=== PATIENT | female | born 1995 | race Two or more races ===

== ENCOUNTER 2019-04-19 18:25 | Emergency (ER) | payer BC, MEDICAID ==
--- NOTE | 2019-04-19 19:59 | ER Document Report ---
ED Medical Screen (RME) - General Chief Complaint: Psych Problem Stated Complaint: PSYCH EVAL Time Seen by Provider: 04/19/19 19:44 Primary Care Provider: SCOTT THURSTON [Primary Care Provider] - Follow up as needed Mode of Arrival: Medic Information source: Patient Notes: 23-year-old female patient presents via EMS with request for entire body checkup. Patient reports that she wants to be checked from the top of her head to her vagina for any illness. Patient is not making any sense, she is talking about her childhood, about abuses, about the fact that she is the [employer] and about the fact that all of us "normal people should be the beheaders". She denies any suicidal or homicidal ideation, denies any psychiatric illnesses and denies the usage of any medications. I have greeted and performed a rapid initial assessment of this patient. A comprehensive ED assessment and evaluation of the patient, analysis of test results and completion of the medical decision making process will be conducted by additional ED providers. I have specifically instructed the patient or family members with the patient to immediately return to any nursing staff should anything change in the patient's condition or with their chief complaint. TRAVEL OUTSIDE OF THE U.S. IN LAST 30 DAYS: No - Related Data Allergies/Adverse Reactions: No Known Allergies Allergy (Unverified 04/19/19 19:44) Past Medical History - Social History Frequency of alcohol use: None Drug Abuse: None Physical Exam - Vital signs Vitals: Temp Pulse Resp BP Pulse Ox 98.1 F 72 20 141/47 H 99 04/19/19 18:48 04/19/19 18:48 04/19/19 18:48 04/19/19 18:48 04/19/19 18:48 Course - Vital Signs Vital signs: Temp Pulse Resp BP Pulse Ox 98.1 F 72 20 141/47 H 99 04/19/19 18:48 04/19/19 18:48 04/19/19 18:48 04/19/19 18:48 04/19/19 18:48 Doctor's Discharge - Discharge Referrals: SCOTT THURSTON [Primary Care Provider] - Follow up as needed
[2019-04-19 20:46] LABS: APPEARANCE,URINE SLIGHTLY-CLOUDY; BILIRUBIN,URINE NEGATIVE (NEGATIVE); COLOR,URINE YELLOW; GLUCOSE, URINE NEGATIVE (NEGATIVE); KETONES,URINE NEGATIVE (NEGATIVE); LEUKOCYTE ESTERASE,URINE NEGATIVE (NEGATIVE); NITRITE,URINE NEGATIVE (NEGATIVE); PROTEIN,URINE NEGATIVE (NEGATIVE); URINE SPECIFIC GRAVITY 1.028
--- NOTE | 2019-04-19 20:52 | ER Document Report ---
ED General - General Chief Complaint: Psych Problem Stated Complaint: PSYCH EVAL Time Seen by Provider: 04/19/19 19:44 Primary Care Provider: SCOTT THURSTON [Primary Care Provider] - Follow up as needed Mode of Arrival: Medic TRAVEL OUTSIDE OF THE U.S. IN LAST 30 DAYS: No - HPI Notes: Patient is a 23-year-old female, poor historian who presents for unknown specific complaint. Patient states that she has been on many medicines including some for schizophrenia. Patient states that she is coming from [facility] and was told to come here by her grandmother. It is very difficult to keep the patient focused on a specific topic and she goes on to say that there is a man in [place] somewhere that calls her "sperm" and does not want to go outside. Patient states that she is trying to find a way for her mother and her grandmother to "go below the world" as she "does not belong in the [facility]." She otherwise has been able to eat and drink without difficulty. She is urinating normally and having normal bowel movements. Patient states that she is not currently taking any medicines. Denies any headache, fever, head injury, neck pain, URI, sore throat, chest pain, palpitations, syncope, cough, shortness of breath, wheeze, dyspnea, abdominal pain, nausea/vomiting/diarrhea, urinary retention, dysuria, hematuria, or rash. - Related Data Allergies/Adverse Reactions: No Known Allergies Allergy (Unverified 04/19/19 19:44) Past Medical History - General Information source: Patient Cannot obtain history due to: Other - ?MH disorder - Social History Smoking Status: Unknown if Ever Smoked Frequency of alcohol use: None Drug Abuse: None Family History: Reviewed & Not Pertinent Patient has suicidal ideation: No Patient has homicidal ideation: No Review of Systems - Review of Systems -: Yes All other systems reviewed and negative Physical Exam - Vital signs Vitals: Temp Pulse Resp BP Pulse Ox 98.1 F 72 20 141/47 H 99 04/19/19 18:48 04/19/19 18:48 04/19/19 18:48 04/19/19 18:48 04/19/19 18:48 - Notes Notes: PHYSICAL EXAMINATION: GENERAL: Well-appearing, well-nourished and in no acute distress. A&Ox2. HEAD: Atraumatic, normocephalic. EYES: Pupils equal round and reactive to light, extraocular movements intact, sclera anicteric, conjunctiva are normal. ENT: Nares patent and without discharge. oropharynx clear without exudates. No tonsilar hypertrophy or erythema. Moist mucous membranes. No sinus tenderness. NECK: Normal range of motion, supple without lymphadenopathy LUNGS: Breath sounds clear to auscultation bilaterally and equal. No wheezes rales or rhonchi. HEART: Regular rate and rhythm without murmurs, rubs, gallops. ABDOMEN: Soft, nontender, nondistended abdomen. No guarding, no rebound. No masses appreciated. Normal bowel sounds present. No CVA tenderness bilaterally. Musculoskeletal: FROM to passive/active. Strength 5+/5. Extremities: No cyanosis, clubbing, or edema b/l. Peripheral pulses 2+. Capillary refill less than 3 seconds. NEUROLOGICAL: Cranial nerves grossly intact. Normal speech, normal gait. Normal sensory, motor exams PSYCH: tangiential speech, racing thoughts, paranoid behavior, slow speech/not slurred. SKIN: Warm, Dry, normal turgor, no rashes or lesions noted. Course - Re-evaluation Re-evalutation: 04/20/19 00:57 Patient is an afebrile, well-hydrated, 23-year-old female who presents with possible schizophrenia and being manic. Vitals are acceptable. PE is otherwise unremarkable. Patient is nontoxic-appearing and is tolerating p.o. without difficulty. Labs and imaging unremarkable. No further work-up warranted at this time. Patient is resting comfortably. Patient is currently medically cleared for evaluation by our mental health team in the morning. - Vital Signs Vital signs: Temp Pulse Resp BP Pulse Ox 98.1 F 72 20 141/47 H 99 04/19/19 18:48 04/19/19 18:48 04/19/19 18:48 04/19/19 18:48 04/19/19 18:48 - Laboratory Result Diagrams: 04/19/19 21:56 04/19/19 21:56 Laboratory results interpreted by me: 04/19/19 04/19/19 20:20 21:56 Urine Urobilinogen 4.0 H Salicylates < 1.0 L Acetaminophen < 10 L Discharge - Discharge Clinical Impression: Manic behavior Condition: Stable Disposition: PSYCH HOSP/UNIT Referrals: SCOTT THURSTON [Primary Care Provider] - Follow up as needed
[2019-04-19 21:02] LABS: URINE AMPHETAMINES SCREEN NEGATIVE; URINE BARBITURATES SCREEN NEGATIVE; URINE BENZODIAZEPINES SCREEN NEGATIVE; URINE COCAINE SCREEN NEGATIVE; URINE MARIJUANA (THC) SCREEN NEGATIVE; URINE METHADONE SCREEN NEGATIVE; URINE PHENCYCLIDINE SCREEN NEGATIVE
--- NOTE | 2019-04-19 21:36 | RADIOLOGY REPORT (SQ) ---
EXAM DESCRIPTION: RadLex: CT HEAD WITHOUT IV CONTRAST CLINICAL HISTORY: 23 years Female; AMS; TECHNIQUE: Noncontrast CT head. All CT scans at this facility use dose modulation, iterative reconstruction, and/or weight based dosing when appropriate to reduce radiation dose to as low as reasonably achievable. COMPARISON: None. FINDINGS: Gamble matter, white matter, ventricles, and cisterns are within normal limits. No acute hemorrhage or mass effect. Mild focal chronic mucosal thickening in the floor the right maxillary sinus. No sinus air-fluid levels. No mastoid effusion. Visualized portions of the calvarium are within normal limits. IMPRESSION: 1. Normal noncontrast CT of the brain
[2019-04-19 22:09] LABS: ABSOLUTE BASOPHILS # (AUTO) 0.1 10^3/uL (0.0-0.2); ABSOLUTE EOSINOPHILS # (AUTO) 0.1 10^3/uL (0.0-0.6); ABSOLUTE LYMPHOCYTES (AUTO) 2.5 10^3/uL (0.5-4.7); ABSOLUTE MONOCYTES (AUTO) 0.6 10^3/uL (0.1-1.4); ABSOLUTE NEUT (AUTO) 4.2 10^3/uL (1.7-8.2); BASOPHILS % (AUTO) 0.7 % (0-2); EOSINOPHILS % (AUTO) 1.1 % (0-6); HEMATOCRIT 37.1 % (36.0-47.0); HEMOGLOBIN 12.7 g/dL (12.0-15.5); LYMPHOCYTES % (AUTO) 33.2 % (13-45); MEAN CORPUSCULAR HEMOGLOBIN 29.5 pg (27.0-33.4); MEAN CORPUSCULAR HGB CONC 34.2 g/dL (32.0-36.0); MEAN CORPUSCULAR VOLUME 87 fl (80-97); MONOCYTES % (AUTO) 8.5 % (3-13); PLATELET COUNT 284 10^3/uL (150-450); RED BLOOD COUNT 4.29 10^6/uL (3.72-5.28); RED CELL DISTRIBUTION WIDTH 13.6 % (11.5-14.0); SEGMENTED NEUTROPHILS % (AUTO) 56.5 % (42-78); TOTAL CELLS COUNTED % (AUTO) 100 %; WHITE BLOOD COUNT 7.5 10^3/uL (4.0-10.5)
[2019-04-19] MEDS ORDERED: FLUCONAZOLE 100 MG TABLET PO ONE (22:29)
[2019-04-19 22:37] LABS: ALBUMIN 3.9 g/dL (3.5-5.0); ALKALINE PHOSPHATASE 72 U/L (38-126); ANION GAP 8 (5-19); ASPARTATE AMINO TRANSFERASE 22 U/L (14-36); BILIRUBIN,DIRECT 0.2 mg/dL (0.0-0.4); BILIRUBIN,TOTAL 0.4 mg/dL (0.2-1.3); BLOOD UREA NITROGEN 15 mg/dL (7-20); CALCIUM 9.4 mg/dL (8.4-10.2); CARBON DIOXIDE 27 mmol/L (22-30); CHLORIDE 106 mmol/L (98-107); GLUCOSE 90 mg/dL (75-110); POTASSIUM 4.4 mmol/L (3.6-5.0); TOTAL PROTEIN 6.8 g/dL (6.3-8.2)
[2019-04-19 22:39] LABS: ACETAMINOPHEN < 10 ug/mL (10-30); ALCOHOL < 10 mg/dL (NONE DETECTED); SALICYLATE < 1.0 mg/dL (2.0-20.0)
--- NOTE | 2019-04-20 07:15 | EKG REPORT ---
SEVERITY:- NORMAL ECG - SINUS RHYTHM : Confirmed by: Kumar Tillman MD 20-Apr-2019 07:14:44
--- NOTE | 2019-04-20 11:55 | ER Document Report ---
Doctor's Note Notes: 04/20/19 11:46 S: 23-year-old female in the emergency department for possible acute psychosis since last night. She was seen overnight by an ER provider and had an tangential thought process. Apparently she just recently moved here from [place] and is living with her grandmother. Her grandmother sent her here for further evaluations. Patient cannot tell me any medicines that she is on. She is very tangential in her thought process but tells me certain things repetitively such as she needs to have her "brain, mouth, vagina, butthole, and feet" checked before she "goes on the plane". She states that she needs to "get on the plane" that she can fly around the world with [employer], a company that makes antibiotics and keeps your bones together, to find her right full family". She repeats this sentiment several times. She does not know where her family is across the world, but states that "[employer] will help me find them." She denies SI or HI. She hesitates when asked if she is hearing voices but then states no. When asked if she is seeing things that are not there she tells me that she is seeing people come into the room and touch her. When I asked her to clarify what she meant, she states that she means she sees me examining her. She is a very poor historian. O: Constitutional: Alert, in no acute distress, brushing her hair HENT: normocephalic, atraumatic, normal pharyngeal exam Cardiac: RRR, no murmurs, rubs, or gallops Pulm: CTA bilaterally, no wheezes, rhonchi or rales Abdomen: soft, non tender, non distended. Skin: Normal turgor, dry, no rash -- no rash or evidence for injury to the feet. mild fungal toenail infection to the bilateral great toenails. Psych: Very bizarre affect. Tangential in speech -- fixated on getting on a plane and having people check her brain, mouth, feet, vagina and rectum. Hints at auditory and visual hallucinations and appears to be responding to internal stimuli. denies SI, HI. Neuro: CN 2-12 intact, no pronator drift, normal finger to nose bilaterally, no leg drift. A/P: 23-year-old female with what appears to be an acute psychotic event. She is slightly manic and pressured in her speech. She is certainly tangential. Fixated on getting on a plane and having a company find her "rightful family". She cannot tell me if she is on any medications. She is currently IVCed. Pending behavioral health team management. 04/20/19 16:43 Discussed patient with Rosa from behavioral health as well as Dr. Ramirez, our clinical psychologist. Dr. Ramirez staff the patient herself. She believes that this is likely not really a psychosis but more of a developmental delay issue. Behavioral health team has tried to contact grandmother as well as mom about further outpatient care. Grandmother lives in [place] and cannot help and mom states that she does not have anything to do with her daughter. They have not been able to get in touch with dad. Patient is not suicidal or homicidal. She has been resting fine here in the emergency department she has not been out of her room or disruptive of any kind. Dr. Ramirez feels ap propriate that patient can be discharged home. She is making a phone call to [facility] [place] [facility] to get her plugged in for further services. I discussed this with my ER attending, Dr. Garcia, and she agrees with the plan for discharge.
[2019-04-20 17:45] VITALS: BP 128/86
--- NOTE | 2019-04-20 18:03 | PSYCHOLOGICAL NOTE ---
Psych Note - Psych Note Date seen by psych provider: 04/20/19 Time seen by psych provider: 08:25 Psych Note: Patient is a 23-year-old female who presents to ED via EMS for concerns of possible psychosis. The overnight attending physician attempted to complete a 24 hour petition for evaluation; however the 24 hour petition for evaluation did not meet legal threshold and was not notarized. Patient was resting comfortably when clinician entered the room. Patient is o riented to name, place, and circumstance. Patient requests a detailed examination of her mouth, "butt hole," feet and vagina. Patient spoke of coming to [place] "for free things." Patient perseverated on obtaining her certificate and social security card. Clinician notes pressured speech and tangential thought processes. Clinician did not observe psychomotor agitation and/or racing thoughts that would suggest a manic episode. Patient generally needed to be told information a couple of times in order for her to process the information. Patient needed frequent redirection to stay on topic. Clinician spoke to patient's mother ([phone]) and grandmother (rachel [phone]) throughout the day. Patient was placed on a bus by her grandmother with the intent of having patient's mother care for her. It is unknown how patient became involved with EMS. Patient's mother arrived at ED after being notified by clinician that patient is here. Mother refuses to be engaged in patient's care because mother states patient "acted out" by refusing to go with mother when mother came to pick her up. Mother states she will visit "where yall send her." Patient's grandmother states patient lived with her father until she was 18, and then father sent her to live with her grandmother in [place]. Grandmother states patient cannot come back to live with her because she is "disabled" and living in a senior citizen complex in [place]. Grandmother does not know patient's biological father's contact information. Impression/Plan: Patient is cleared from acute psychiatric services. Patient denies suicidal and homicidal ideations. There is no observed behavior that suggests patient is responding to internal stimuli. Patient was able to express needs and wants in a logical manner. Patient required redirection to remain on topic and needed information to be repeated, which is suggestive of possible cognitive processing delays. Patient's mother and grandmother were poor hist orians, so obtaining background information is challenging. Patient spoke of a desire to find her family, which is suggestive of her not viewing her family her in [place] (mother and grandmother) as family. Patient's mother and other grandmother visited patient in hospital and patient declined to go with them because she states she does not remember them. Behavioral health team collaborated with the [facility] to secure housing, and a cab voucher was provided by the ED to assist with transportation. An APS report was filed. Dr. Ramirez was consulted on the care and management of this patient; attending physician is in agreement with recommendations and disposition.
== END 2019-04-20 18:17 | disposition home or self-care (01) ==
LOC: ER 18:25
DX: F29 Unspecified psychosis not due to a substance or known physiological condition (principal); F30.9 Manic episode, unspecified
CPT/HCPCS: 36415; 70450; 80053; 80307; 81001; 85025; 93005; 93010

== ENCOUNTER 2019-04-28 21:51 | Emergency (ER) | payer SELFPAY ==
[2019-04-28 22:10] VITALS: BP 138/63
[2019-04-28] MEDS ORDERED: GUAIFENESIN 600 MG TABLET.SA PO ONE (22:58)
[2019-04-28] MEDS ORDERED: IBUPROFEN 600 MG TABLET PO ONE (22:58)
--- NOTE | 2019-04-28 23:01 | ER Document Report ---
HPI - HPI Time Seen by Provider: 04/28/19 22:53 Context: Patient is a 23-year-old female who presents to the emergency department with a chief complaint of nasal congestion, cough, and chest congestion for the past week. Patient states that she feels like she has "ichy sticky's" in the back of her throat in her chest. - CONSTITUTIONAL Constitutional: REPORTS: Chills. DENIES: Fever - EENT EENT: REPORTS: Nasal Drainage-Clear, Congestion. DENIES: Sore Throat, Ear Pain, Nasal Drainage-Purulent, Eye problems - NEURO Neurology: DENIES: Headache, Weakness - CARDIOVASCULAR Cardiovascular: DENIES: Chest pain - RESPIRATORY Respiratory: REPORTS: Coughing. DENIES: Trouble Breathing - GASTROINTESTINAL Gastrointestinal: DENIES: Abdominal Pain, Nausea, Patient vomiting - MUSCULOSKELETAL Musculoskeletal: DENIES: Extremity pain - DERM Skin Color: Normal Skin Problems: None Past Medical History - General Information source: Patient - Social History Smoking Status: Unknown if Ever Smoked Family History: Reviewed & Not Pertinent Vertical Provider Document - CONSTITUTIONAL Agree With Documented VS: Yes Exam Limitations: No Limitations General Appearance: No Apparent Distress - INFECTION CONTROL TRAVEL OUTSIDE OF THE U.S. IN LAST 30 DAYS: No - HEENT HEENT: Atraumatic, Normocephalic, PERRLA. negative: Conjuctival Injection, Pharyngeal Exudate, Pharyngeal Tenderness, Pharyngeal Erythema, Tympanic Membrane Red, Tympanic Membrane Bulging Notes: clear rhinorrhea noted - RESPIRATORY Respiratory: Breath Sounds Normal, No Respiratory Distress - CARDIOVASCULAR Cardiovascular: Regular Rate, Regular Rhythm, No Murmur Pulses: Normal: Radial - GI/ABDOMEN Gastrointestinal: Abdomen Soft, Abdomen Non-Tender - MUSCULOSKELETAL/EXTREMETIES Musculoskeletal/Extremeties: FROM - DERM Integumentary: Warm, Dry, No Rash Course - Re-evaluation Re-evalutation: 04/29/19 01:07 Patient was called and did not answer. Chest x-ray is normal. At this time, I have a very low suspicion for any life-threatening etiology. Breath sounds were clear upon my initial assessment. I wrote discharge paperwork for the patient, but she was not in the lobby. She will be placed on Mucinex, ibuprofen, and Tylenol to help with her symptoms. Discharge paperwork was given to JOHANNY Ibrahim. If patient returns, Alexandria will give the patient her paperwork. - Vital Signs Vital signs: Temp Pulse Resp BP Pulse Ox 98.2 F 65 20 138/63 H 100 04/28/19 22:06 04/28/19 22:06 04/28/19 22:06 04/28/19 22:06 04/28/19 22:06 Discharge - Discharge Clinical Impression: Chest congestion, Cough Condition: Stable Disposition: ELOPED Additional Instructions: You were seen today in the emergency department for chest congestion, nose congestion, and generally not feeling well. Your chest x-ray is normal. Please take Mucinex as prescribed. Take ibuprofen 600 mg and acetaminophen 1000 mg every 6 hours for body aches. Follow-up with your primary care provider in regards to this visit. Prescriptions: Acetaminophen [Acetaminophen Extra Strength] 1,000 mg PO Q6HP PRN #90 tablet PRN Reason: Pain Scale Of 1 Ibuprofen [Ibu] 600 mg PO Q6HP PRN #30 tablet PRN Reason: Guaifenesin [Mucinex] 1,200 mg PO BID #[id number] Referrals: SCOTT THURSTON [Primary Care Provider] - Follow up as needed
--- NOTE | 2019-04-28 23:47 | RADIOLOGY REPORT (SQ) ---
EXAM DESCRIPTION: XR CHEST 2 VIEWS COMPLETED DATE/TME: 04/28/2019 22:58 CLINICAL HISTORY: 23 years, Female, cough; congestion COMPARISON: None. NUMBER OF VIEWS: 2 TECHNIQUE: 2 view chest LIMITATIONS: None. FINDINGS: Heart size normal. Lungs clear. No pneumothorax IMPRESSION: Negative chest copyright 2011 [employer]- All Rights Reserved
== END 2019-04-29 01:10 | disposition left against medical advice (07) ==
LOC: ER 21:51
DX: R09.89 Other specified symptoms and signs involving the circulatory and respiratory systems (principal); R05 Cough; R09.81 Nasal congestion; R68.83 Chills (without fever); J34.89 Other specified disorders of nose and nasal sinuses; Z53.20 Procedure and treatment not carried out because of patient's decision for unspecified reasons
CPT/HCPCS: 71046

== ENCOUNTER 2019-04-29 02:05 | Emergency (ER) | payer SELFPAY ==
[2019-04-29 02:11] VITALS: BP 123/60
[2019-04-29 02:57] LABS: A TYPE INFLUENZA AG NEGATIVE (NEGATIVE); B INFLUENZA AG NEGATIVE (NEGATIVE)
== END 2019-04-29 06:17 | disposition left against medical advice (07) ==
LOC: ER 02:05
DX: Z53.21 Procedure and treatment not carried out due to patient leaving prior to being seen by health care provider (principal)
CPT/HCPCS: 87804

== ENCOUNTER 2019-05-11 18:55 | Emergency (ER) | payer SELFPAY ==
--- NOTE | 2019-05-11 19:17 | ER Document Report ---
ED Medical Screen (RME) - General Chief Complaint: Psych Problem Stated Complaint: DELUSIONAL Time Seen by Provider: 05/11/19 19:16 Primary Care Provider: SCOTT THURSTON [Primary Care Provider] - Follow up as needed Notes: 23-year-old female presents for psych evaluation. Patient has tangential thought. Patient denies any SI or HI. Patient denies any visual or auditory hallucinations. Nontoxic, well-appearing. I have greeted and performed a rapid initial assessment of this patient. A comprehensive ED assessment and evaluation of the patient, analysis of test results and completion of the medical decision making process with be conducted by additional ED providers. TRAVEL OUTSIDE OF THE U.S. IN LAST 30 DAYS: No - Related Data Allergies/Adverse Reactions: No Known Allergies Allergy (Verified 04/20/19 07:35) Physical Exam - Vital signs Vitals: Temp Pulse Resp BP Pulse Ox 98.2 F 80 16 130/76 H 99 05/11/19 19:01 05/11/19 19:01 05/11/19 19:01 05/11/19 19:01 05/11/19 19:01 Course - Vital Signs Vital signs: Temp Pulse Resp BP Pulse Ox 98.2 F 80 16 130/76 H 99 05/11/19 19:01 05/11/19 19:01 05/11/19 19:01 05/11/19 19:01 05/11/19 19:01 Doctor's Discharge - Discharge Referrals: SCOTT THURSTON [Primary Care Provider] - Follow up as needed
[2019-05-11 20:11] LABS: ABSOLUTE EOSINOPHILS # (AUTO) 0.2 10^3/uL (0.0-0.6); ABSOLUTE LYMPHOCYTES (AUTO) 2.5 10^3/uL (0.5-4.7); ABSOLUTE MONOCYTES (AUTO) 0.6 10^3/uL (0.1-1.4); ABSOLUTE NEUT (AUTO) 4.4 10^3/uL (1.7-8.2); BASOPHILS % (AUTO) 0.5 % (0-2); EOSINOPHILS % (AUTO) 2.3 % (0-6); HEMATOCRIT 35.4 % (36.0-47.0); HEMOGLOBIN 12.1 g/dL (12.0-15.5); LYMPHOCYTES % (AUTO) 32.1 % (13-45); MEAN CORPUSCULAR HEMOGLOBIN 29.9 pg (27.0-33.4); MEAN CORPUSCULAR HGB CONC 34.2 g/dL (32.0-36.0); MEAN CORPUSCULAR VOLUME 87 fl (80-97); MONOCYTES % (AUTO) 7.9 % (3-13); PLATELET COUNT 322 10^3/uL (150-450); RED BLOOD COUNT 4.06 10^6/uL (3.72-5.28); RED CELL DISTRIBUTION WIDTH 13.8 % (11.5-14.0); SEGMENTED NEUTROPHILS % (AUTO) 57.2 % (42-78); TOTAL CELLS COUNTED % (AUTO) 100 %; WHITE BLOOD COUNT 7.7 10^3/uL (4.0-10.5)
[2019-05-11 20:13] LABS: APPEARANCE,URINE SLIGHTLY-CLOUDY; BILIRUBIN,URINE NEGATIVE (NEGATIVE); COLOR,URINE YELLOW; GLUCOSE, URINE NEGATIVE (NEGATIVE); KETONES,URINE NEGATIVE (NEGATIVE); LEUKOCYTE ESTERASE,URINE TRACE (NEGATIVE); NITRITE,URINE NEGATIVE (NEGATIVE); PROTEIN,URINE NEGATIVE (NEGATIVE); URINE SPECIFIC GRAVITY 1.027
[2019-05-11 20:24] LABS: URINE AMPHETAMINES SCREEN NEGATIVE; URINE BARBITURATES SCREEN NEGATIVE; URINE BENZODIAZEPINES SCREEN NEGATIVE; URINE COCAINE SCREEN NEGATIVE; URINE MARIJUANA (THC) SCREEN NEGATIVE; URINE METHADONE SCREEN NEGATIVE; URINE PHENCYCLIDINE SCREEN NEGATIVE
[2019-05-11 20:26] LABS: ACETAMINOPHEN < 10 ug/mL (10-30); ALBUMIN 4.1 g/dL (3.5-5.0); ALCOHOL < 10 mg/dL (NONE DETECTED); ALKALINE PHOSPHATASE 85 U/L (38-126); ANION GAP 9 (5-19); ASPARTATE AMINO TRANSFERASE 37 U/L (14-36); BILIRUBIN,DIRECT 0.2 mg/dL (0.0-0.4); BILIRUBIN,TOTAL 0.5 mg/dL (0.2-1.3); BLOOD UREA NITROGEN 17 mg/dL (7-20); CALCIUM 9.2 mg/dL (8.4-10.2); CARBON DIOXIDE 26 mmol/L (22-30); CHLORIDE 103 mmol/L (98-107); GLUCOSE 85 mg/dL (75-110); POTASSIUM 4.1 mmol/L (3.6-5.0); SALICYLATE < 1.0 mg/dL (2.0-20.0)
--- NOTE | 2019-05-11 23:13 | ER Document Report ---
ED General - General Chief Complaint: Psych Problem Stated Complaint: DELUSIONAL Time Seen by Provider: 05/11/19 19:16 Primary Care Provider: SCOTT THURSTON [Primary Care Provider] - Follow up as needed Mode of Arrival: Ambulatory Information source: Patient Notes: 23-year-old female with history of schizophrenia presents emergency department with no complaints. According to Georgi from [facility] the patient recently moved to the area from [place]. She was supposed to live with her mother but her mother reports patients acts out and does not want her to live with her. Patient has been living in the homeless senior living for the past month. Apparently she went to [employer] and people became concerned because she was acting a little bizarre. Patient denies suicidal or homicidal ideations. Patient is very calm, easy to talk with. She talks about the need to get to the other side of the world. Patient does not answer questions directly. When asked why she came to the emergency department she will start talking about her grandfather who she does not know his name who she has to find who is living on the other side the world. Patient has no complaints at this time. Discussed patient with from [facility]. Discharge director of social services consult ordered. TRAVEL OUTSIDE OF THE U.S. IN LAST 30 DAYS: No - HPI Quality of pain: No pain Associated symptoms: None Exacerbated by: Denies Relieved by: Denies Similar symptoms previously: Yes Recently seen / treated by doctor: Yes - Related Data Allergies/Adverse Reactions: No Known Allergies Allergy (Verified 04/20/19 07:35) Past Medical History - General Information source: Patient - Social History Smoking Status: Never Smoker Chew tobacco use (# tins/day): No Frequency of alcohol use: None Drug Abuse: None Lives with: Homeless Family History: Reviewed & Not Pertinent Patient has suicidal ideation: No Patient has homicidal ideation: No Psychiatric Medical History: Reports: Hx Schizophrenia, Other - IDD Surgical Hx: Negative Review of Systems - Review of Systems Notes: Review HPI for review of systems., All other systems negative Physical Exam - Vital signs Vitals: Temp Pulse Resp BP Pulse Ox 98.2 F 80 16 130/76 H 99 05/11/19 19:01 05/11/19 19:01 05/11/19 19:01 05/11/19 19:01 05/11/19 19:01 - Notes Notes: PHYSICAL EXAMINATION: GENERAL: Well-appearing and in no acute distress HEAD: Atraumatic, normocephalic. EYES: Pupils equal round and reactive to light, extraocular movements intact, sclera anicteric, conjunctiva are normal. ENT: nares patent, oropharynx clear without exudates. Moist mucous membranes. NECK: Normal range of motion, supple without lymphadenopathy LUNGS: CTAB and equal. No wheezes rales or rhonchi. HEART: Regular rate and rhythm without murmurs ABDOMEN: Soft, no tenderness. No guarding, no rebound EXTREMITIES: Normal range of motion NEUROLOGICAL: Cranial nerves grossly intact. Normal sensory/motor exams. PSYCH: Normal mood, normal affect. calm SKIN: Warm, Dry, normal turgor, no rashes or lesions noted Course - Re-evaluation Re-evalutation: 05/12/19 07:38 23-year-old female presents with IDD schizophrenia last night for acting odd at [employer]. Patient is homeless. Patient to be evaluated by psych this morning. She slept all night without incidence. - Vital Signs Vital signs: Temp Pulse Resp BP Pulse Ox 98.1 F 80 20 106/60 99 05/12/19 06:34 05/12/19 06:34 05/12/19 06:34 05/12/19 06:34 05/12/19 06:34 - Laboratory Result Diagrams: 05/11/19 19:20 05/11/19 19:20 Laboratory results interpreted by me: 05/11/19 05/11/19 05/11/19 19:20 19:20 19:20 Hct 35.4 L AST 37 H ALT 48 H Urine Urobilinogen 2.0 H Ur Leukocyte Esterase TRACE H Urine Ascorbic Acid 20 H Salicylates < 1.0 L Acetaminophen < 10 L - EKG Interpretation by De EKG shows normal: Sinus rhythm Rate: Normal Additional EKG results interpreted by ky: 05/12/19 02:[address] elevation no T wave inversion Discharge - Discharge Clinical Impression: Confusion Condition: Stable Disposition: HOME, SELF-CARE Referrals: SCOTT THURSTON [Primary Care Provider] - Follow up as needed
--- NOTE | 2019-05-12 07:25 | EKG REPORT ---
SEVERITY:- NORMAL ECG - SINUS RHYTHM : Confirmed by: Kumar Tillman MD 12-May-2019 07:25:04
--- NOTE | 2019-05-12 17:28 | PSYCHOLOGICAL NOTE ---
Psych Note - Psych Note Date seen by psych provider: 05/12/19 Time seen by psych provider: 07:25 Psych Note: Patient is a 23-year-old female who presents to ED via EMS for delusions. Patient is known to behavioral health. Gaining information regarding patient's past mental health history has been challenging, as patient was transferred between family members since youth and there is lack of contact information for family, other than grandmother, Sabino who is a poor historian. Attempted contact with patient's mother ([phone]) cell phone has been disconnected. Mother came to ED however declined to take patient home because her is concerned patient will "get us kicked out of our apartment." Mother listed "acting out" behavior as patient knocking on diaz as a concern. Spoke with patient's grandmother, Sabino ([phone]) who is a poor historian regarding patient's mental health history. Grandmother lives [place] in a senior citizen community and is unable to provide assistance. Grandmother states patient "does not want help from anyone." Patient reports she "doesn't feel so good." Patient spoke of her grandfather "owning my life [grandfather had custody of patient]" and "he's gone below." Patient denies grandfather has . Patient spoke of not "supposed to be in the [place] Patient states she went to [facility] to request a ferry out of the [facility], but "they didn't get the message." Patient was residing at the homeless longterm until she was asked to leave due to not following longterm rules and regulations. [facility] is involved with patient, and will provide transportation to a homeless longterm in another county. Mood is normal with congruent affect. Patient denies suicidal and homicidal ideations. There is no observed behavior that suggests patient is responding to internal stimuli. Patient is able to engage in organized, rational thought processes. Patient is able to express needs and wants in a logical manner. Patient denies current auditory and visual hallucinations. Eye contact is appropriate. Conversational speech is within normal limits of rate, tone, and prosody. Intellectual ability appears to be limited. Attention and concentration are fair. Insight, judgment and impulse control are currently poor. Impression/Plan: Patient is cleared from acute psychiatric services. Patient is functioning at her baseline. Dr. Ramirez conducted IQ testing and the results are suggestive of patient having a low IQ, not a mental health issue. Sukumar with APS conducted interview with patient to determine if patient is appropriate for APS services. Dr. Ramirez was consulted on the care and management of this patient. Attending physician is in not in agreement with recommendations and disposition. Attending physician was not comfortable with discharge plan. Plan is for patient to remain in ED voluntarily overnight. [facility] mobile crisis will pick patient up in the morning when homeless shelters are open and available to complete intake. Clinician informed Asya ([phone]), [facility] mobile crisis to be at the ED at 09:45 for 10:00 discharge.
--- NOTE | 2019-05-12 18:33 | ER Document Report ---
Doctor's Note Notes: 05/12/19 18:33 Patient is a 23-year-old female with history of low IQ who presents homeless and not wanted by her family currently after traveling this way to deal with them. She was living in the home [facility] for the past month, but cannot go back there. She has not had any recent illness. She is able to eat and drink without difficulty. She is urinating normally and having normal bowel movement. Denies drug allergies. Patient was medically cleared yesterday. Our mental health team has evaluated and has cleared her on a mental health basis. She is currently here as a social hold. [facility] is involved and will try to find placement for her tomorrow. Our clinical social work therapist was already involved, but [facility] will be imelda mejia on this. Denies any headache, fever, neck pain, URI, sore throat, chest pain, palpitations, syncope, cough, shortness of breath, wheeze, dyspnea, abdominal pain, nausea/vomiting/diarrhea, urinary retention, dysuria, hematuria, or rash. General: A&O. Answers questions appropriately. Heart: RRR Lungs: CTAB Psych: Normal mood/affect A/P: Patient is a social hold currently. I did review with the patient as well as [facility] after discussion with them that she will remain here until tomorrow which should buy them time to help find placement for her. At that time we may consider discharging if no foreseeable placement is noted. Patient and [facility] is in agreement with this plan. Labs acceptable. Vitals acceptable.
--- NOTE | 2019-05-13 09:57 | ER Document Report ---
Doctor's Note Notes: 05/13/19 09:55 23-year-old female who is homeless has been living in a long term for the past month. She has been eating and drinking without any issues. Mental health has been at bedside. They did find placement for her. Patient's vital signs and previous labs, diagnostic images reviewed. Reviewed mental health notes, nurse's notes and previous providers notes. VSS. Pt is in no distress at this time. Denies any SI or HI. General: A&Ox3. Answers questions appropriately. Heart: RRR Lungs: CTAB Psych: Flat affect A/P: Continue monitoring and rec's per MH. Normal diet Placement. Patient is stable for placement and for discharge from the hospital. VSS.
--- NOTE | 2019-05-13 10:05 | PSYCHOLOGICAL NOTE ---
Psych Note - Psych Note Date seen by psych provider: 05/13/19 Time seen by psych provider: 09:45 Psych Note: Check in conducted with patient. Patient was informed that Asya ([phone]), [facility] mobile [facility] is here to take her to [place] to link up with a financial foundations representative from [facility]. Patient verbalized understanding and expressed excitement about going. Patient stated "as long as it is not [address], but they'll know how to find me." Impression/Plan: Patient is cleared from acute psychiatric services. Patient is functioning at her baseline. Dr. Ramirez conducted IQ testing and the results are suggestive of patient having a low IQ, not a mental health issue. Sukumar with APS conducted interview with patient to determine if patient is appropriate for APS services. [facility] is facilitating transportation and linkage with [facility] in [place], [place]. Dr. Ramirez was consulted on the care and management of this patient; attending physician is in agreement with recommendations and disposition.
[2019-05-13 10:27] VITALS: BP 123/66
== END 2019-05-13 10:30 | disposition home or self-care (01) ==
LOC: ER 18:55
DX: R41.0 Disorientation, unspecified (principal); F81.9 Developmental disorder of scholastic skills, unspecified; F20.9 Schizophrenia, unspecified; Z59.0 Homelessness
CPT/HCPCS: 36415; 80053; 80307; 81001; 84703; 85025; 93005; 93010; 99285